=== PATIENT | female | born 2000 | race Caucasian/White ===

== ENCOUNTER 2024-06-27 04:30 | Emergency (ER) | payer MEDICAID ==
[~2024-06-27] VITALS: Ht 157.5 cm; Wt 72.6 kg
[2024-06-27 04:42] VITALS: BP 121/80; PULSE 117; RESP 20; TEMP 99.5; O2SAT 95
[2024-06-27] MEDS: HYDROcodone/APAP 5/325 MG 1 TAB TAB PO ONE (05:38)
[2024-06-27] MEDS ORDERED: ACET-8905 PO ×2 (05:39→06:12)
--- NOTE | 2024-06-27 05:39 | NUR ---
PT MEDICATED PER ERMD ORDER, PT TOLERATED WELL.
[2024-06-27 06:12] VITALS: BP 121/80; PULSE 90; RESP 20; TEMP 98; O2SAT 95
--- NOTE | 2024-06-27 06:12 | NUR ---
Patient discharged with v/s stable. Written and verbal after care instructions given and explained. Patient alert, oriented and verbalized understanding of instructions. Wheel Chair Assisted with to car. All questions addressed prior to discharge. ID band removed. Patient advised to follow up with PMD. Rx given. Patient educated on indication of medication including possible reaction and side effects. Opportunity to ask questions provided and answered.
== END 2024-06-27 06:12 | disposition home or self-care (01) ==
LOC: MED 04:30
DX: S82.832A Other fracture of upper and lower end of left fibula, initial encounter for closed fracture (principal); S92.352A Displaced fracture of fifth metatarsal bone, left foot, initial encounter for closed fracture; Z79.899 Other long term (current) drug therapy; X50.1XXA Overexertion from prolonged static or awkward postures, initial encounter; Y93.89 Activity, other specified; Y92.89 Other specified places as the place of occurrence of the external cause; Y99.8 Other external cause status
CPT/HCPCS: 29515; 73610; 73630; 99284; Q0092

== ENCOUNTER 2024-06-29 16:51 | Emergency (ER) | payer MEDICAID ==
[~2024-06-29] VITALS: Ht 157.5 cm; Wt 74.8 kg
[~2024-06-29 16:51] MED LIST: ACET-8905 PO
[2024-06-29 17:35] VITALS: BP 130/73; PULSE 97; RESP 18; TEMP 98.3; O2SAT 97
--- NOTE | 2024-06-29 18:03 | NUR ---
Patient discharged with v/s stable. Written and verbal after care instructions given FOR ANKLE FRACTURE Patient verbalized understanding. Ambulatory with steady gait. All questions addressed prior to discharge. Advised to follow up with PMD.
== END 2024-06-29 18:03 | disposition home or self-care (01) ==
LOC: MED 16:51
DX: S82.62XA Displaced fracture of lateral malleolus of left fibula, initial encounter for closed fracture (principal); S92.352A Displaced fracture of fifth metatarsal bone, left foot, initial encounter for closed fracture; Z79.899 Other long term (current) drug therapy; Z88.6 Allergy status to analgesic agent; Z88.5 Allergy status to narcotic agent; X58.XXXA Exposure to other specified factors, initial encounter; Y92.89 Other specified places as the place of occurrence of the external cause; Y93.89 Activity, other specified; Y99.8 Other external cause status
CPT/HCPCS: 29515; 99283

== ENCOUNTER 2024-07-06 04:35 | Emergency (ER) | payer MEDICAID ==
[~2024-07-06] VITALS: Ht 157.5 cm; Wt 69.9 kg
[2024-07-06 04:40] VITALS: BP 149/87; PULSE 122; RESP 18; O2SAT 99
[2024-07-06 07:25] VITALS: PULSE 98; RESP 17; O2SAT 97
== END 2024-07-06 07:25 | disposition home or self-care (01) ==
LOC: MED 04:35
DX: S92.355A Nondisplaced fracture of fifth metatarsal bone, left foot, initial encounter for closed fracture (principal); S82.832A Other fracture of upper and lower end of left fibula, initial encounter for closed fracture; S93.402A Sprain of unspecified ligament of left ankle, initial encounter; Z79.899 Other long term (current) drug therapy; Z88.6 Allergy status to analgesic agent; Z88.5 Allergy status to narcotic agent; W18.39XA Other fall on same level, initial encounter; Y92.89 Other specified places as the place of occurrence of the external cause; Y93.89 Activity, other specified; Y99.8 Other external cause status
CPT/HCPCS: 29515; 73610; 99283